=== PATIENT | female | born 1960 | race African-American/Black ===

== ENCOUNTER 2016-12-08 11:29 | Emergency (ER) | payer BC, OTHER ==
[~2016-12-08] VITALS: Ht 165.1 cm; Wt 84.0 kg
[~2016-12-08 11:29] MED LIST: MAXZIDE
[2016-12-08 11:32] VITALS: Ht 165.1 cm; Wt 84.0 kg
[2016-12-08] MEDS ORDERED: SOD CHLORIDE 0.9% 1,000 ML IV STA (14:00)
[2016-12-08] MEDS ORDERED: KETOROLAC 15 MG INJ IV STA (14:00)
[2016-12-08] MEDS ORDERED: ALPRAZOLAM 0.25 MG TAB PO ONE (14:00)
[2016-12-08 14:24] LABS: BASOPHILS % 0.5 % (0.0-2.0); EOSINOPHILS # 0.1 10^3/ul (0.0-0.5); EOSINOPHILS % 1.8 % (0.0-7.0); HEMATOCRIT 39.1 % (37.0-47.0); HEMOGLOBIN 13.4 g/dl (12.0-16.0); LYMPHOCYTES # 1.7 10^3/ul (0.8-2.9); LYMPHOCYTES % 26.3 % (15.0-51.0); MEAN CORPUSCULAR HEMOGLOBIN 28.6 pg (29.0-33.0); MEAN CORPUSCULAR HGB CONC 34.3 g/dl (32.0-37.0); MEAN CORPUSCULAR VOLUME 83.5 fl (82.0-101.0); MEAN PLATELET VOLUME 9.6 fl (7.4-10.4); MONOCYTE # 0.4 10^3/ul (0.3-0.9); MONOCYTES % 5.6 % (0.0-11.0); NEUTROPHILS % 65.5 % (39.0-77.0); PLATELET COUNT 289 10^3/UL (140-415); RED BLOOD COUNT 4.68 10^6/ul (4.20-5.40); WHITE BLOOD COUNT 6.6 10^3/ul (4.8-10.8)
--- NOTE | 2016-12-08 14:28 | RADRPT ---
PROCEDURE: XR Chest. CLINICAL INDICATION: Shortness of breath TECHNIQUE: Single AP view of the chest were obtained COMPARISON: 09/21/2014 FINDINGS: The heart and mediastinum are within normal limits. The pulmonary vasculature are unremarkable. The aorta is unremarkable. There is no lung consolidation, pleural effusion or pneumothorax. There i s no acute osseous abnormality. IMPRESSION: No acute disease. RPTAT: AA .Jemma Tucker MD, Date Time Electronically viewed and signed by .Jemma Tucker MD, on 12/08/2016 14:28 .J/
--- NOTE | 2016-12-08 14:37 | ERD ---
ER Documentation Chief Complaint Date/Time DATE: 12/08/16 TIME: 14:35 Chief Complaint Complains of sob HPI 56-year-old woman presents with 2 weeks of sharp nonexertional nonradiating chest pain as well as exertional dyspnea. She states symptoms occur intermittently throughout the day 2 weeks. She denies exertional chest pain or discomfort and denies symptoms at rest. She states she had similar episode of chest pains a few years ago and underwent cardiac stress testing with her legal compliance officer which was unremarkable. Patient does have a history of well- controlled diabetes mellitus and hypertension and denies other risk factors for coronary artery disease, denies family history of early coronary artery disease or sudden cardiac . She has had no cough, no calf or leg swelling, no fevers or chills, no vomiting or diarrhea. Upon further questioning patient states she has been feeling anxious lately and family members were at the bedside states she has been extremely stressed out and anxious about recent family issues which they did not want to go into detail about. ROS All systems reviewed and are negative except as per history of present illness. Medications Home Meds Active Scripts Alprazolam* (Xanax*) 0.5 Mg Tab, 0.5 MG PO BID for ANXIETY, #15 TAB Prov:DEL MUNOZ MD 12/08/16 Reported Medications Amlodipine Besylate* (Amlodipine Besylate*) 10 Mg Tablet, 10 MG PO DAILY, #30 TAB 12/08/16 Valsartan/Hydrochlorothiazide (Diovan Hct 320-12.5 mg Tab) 1 Each Tablet, 1 EACH PO DAILY, TAB 12/08/16 Metformin Hcl* (Metformin Hcl* ER) 750 Mg Tab.sr.24h, 750 MG PO DAILY, #30 TAB 12/08/16 Discontinued Reported Medications [Maxzide] No Conflict Check 06/06/09 Allergies Allergies: Coded Allergies: ibuprofen (Verified Allergy, Intermediate, Palpitations, 12/08/16) naproxen (Verified Allergy, Intermediate, Palpitation, 12/08/16) PMhx/Soc Hypertension and diabetes mellitus History of Surgery: No Anesthesia Reaction: No Hx Neurological Disorder: No Hx Respiratory Disorders: No Hx Cardiac Disorders: Yes (HTN) Hx Psychiatric Problems: No Hx Miscellaneous Medical Probl: Yes (OVARIAN CYST, DM) Hx Alcohol Use: Yes (Occasionally) Hx Substance Use: No Hx Tobacco Use: No Smoking Status: Never smoker FmHx Family History: No diabetes Physical Exam Vitals Vital Signs Date Time Temp Pulse Resp B/P Pulse Ox O2 Delivery O2 Flow Rate FiO2 12/08/16 15:25 69 18 140/78 96 Room Air 12/08/16 14:15 78 20 158/90 96 Room Air 12/08/16 11:32 98.4 103 20 170/84 98 Physical Exam GENERAL: Well-developed, well-nourished, well-hydrated, anxious and tearful, afebrile HEENT: Moist mucous membranes, pink conjunctiva, no cervical spine tenderness or step-off deformities, no goiter, no jaundice or icterus, extraocular movements intact without pain. No submandibular induration, and no pharyngeal erythema NEURO: Alert and oriented 3, cranial nerves II through XII intact bilaterally, pupils equal round reactive to light, no focal deficits or facial asymmetry, sensation intact distally Strength 5/5 in upper and lower extremities bilaterally CARDIAC: Regular rate and rhythm, no murmurs rubs or gallops LUNGS: Clear bilaterally no wheezing crackles or stridor ABDOMEN: Soft nontender, no guarding, no rigidity, no rebound, no psoas sign no obturator sign. Normoactive bowel sounds SKIN: Warm and dry to touch, no abrasions, contusions, or hematomas, no lacerations, no ecchymosis, no target lesions, and without ulcers EXTREMITIES: No clubbing cyanosis or edema, calves are bilaterally symmetrical, no Homans sign, no popliteal cord sign. Distal pulses equal and bilateral PSYCH: Anxious Result Diagram: 12/08/16 1415 12/08/16 1415 Results 24 hrs Laboratory Tests Test 12/08/16 14:15 White Blood Count 6.610^3/ul Red Blood Count 4.6810^6/ul Hemoglobin 13.4g/dl Hematocrit 39.1% Mean Corpuscular Volume 83.5fl Mean Corpuscular Hemoglobin 28.6pg Mean Corpuscular Hemoglobin Concent 34.3g/dl Red Cell Distribution Width 13.0% Platelet Count 56049^3/UL Mean Platelet Volume 9.6fl Neutrophils % 65.5% Lymphocytes % 26.3% Monocytes % 5.6% Eosinophils % 1.8% Basophils % 0.5% Nucleated Red Blood Cells % 0.0/100WBC Neutrophils # (Manual) 4.310^3/ul Lymphocytes # 1.710^3/ul Monocytes # 0.410^3/ul Eosinophils # 0.110^3/ul Basophils # 0.010^3/ul Nucleated Red Blood Cells # 0.010^3/ul Sodium Level 140mmol/L Potassium Level 4.2mmol/L Chloride Level 101mmol/L Carbon Dioxide Level 29mmol/L Anion Gap 14 Blood Urea Nitrogen 6mg/dl Creatinine 0.65mg/dl Glucose Level 234mg/dl Calcium Level 10.2mg/dl Total Bilirubin 0.4mg/dl Direct Bilirubin 0.00mg/dl Indirect Bilirubin 0.4mg/dl Aspartate Amino Transf (AST/SGOT) 25IU/L Alanine Aminotransferase (ALT/SGPT) 39IU/L Alkaline Phosphatase 111IU/L Troponin I < 0.012ng/ml Total Protein 8.4g/dl Albumin 4.5g/dl Globulin 3.90g/dl Albumin/Globulin Ratio 1.15 Lipase 66U/L Current Medications Medications (Trade) Dose Ordered Sig/Cj Route PRN Reason Start Time Stop Time Status Last Admin Dose Admin Sodium Chloride (NS) 1,000 ml @ 1,000 mls/hr Q1H STAT IV 12/08/16 14:00 12/08/16 14:59 DC 12/08/16 14:24 Ketorolac Tromethamine (Toradol) 15 mg ONCE STAT IV 12/08/16 14:00 12/08/16 14:01 DC Alprazolam (Xanax) 0.5 mg ONCE ONCE PO 12/08/16 14:00 12/08/16 14:01 DC 12/08/16 14:24 Procedures/MDM IV line was established patient was placed on lumber loader rhythm strip revealed a sinus rhythm at about 70 bpm with upright P and T waves. Patient was afebrile. EKG performed, read by me: 72 bpm, normal sinus rhythm, normal axis, no acute ST segment changes, narrow QRS complex, with good R-wave progression in precordial leads. Chest X-ray 1V Interpreted by me: Soft Tissue: No acute abnormalities Bones: No acute abnormalities Mediastinum/Cardiac Silhouette/Lungs: No acute abnormalities CBC and electrolytes are normal, liver function tests are normal, troponin was negative. I administered 1 L normal saline intravenously and alprazolam 0.5 mg p.o. with good response. Differential diagnoses considered, included but not limited to acute coronary syndrome, pulmonary embolism, aortic dissection, abdominal aortic aneurysm, sepsis, stroke, meningitis, encephalitis, pneumonia, appendicitis, cholecystitis , bowel obstruction, pyelonephritis, nephrolithiasis, cystitis, as well as metabolic, hematologic, and electrolyte abnormalities. As well as abscess, cellulitis, fractures, and dislocations. Patient feels much better at this time, and vital signs are normal, symptoms have improved. I did give strict instructions to return to the ED if symptoms continue or worsen, patient will otherwise follow-up with primary care physician. Patient understood instructions and agreed to plan. Disclaimer: Inadvertent spelling and grammatical errors are likely due to EHR/ dictation software use and do not reflect on the overall quality of patient care. Also, please note that the electronic time recorded on this note does not necessarily reflect the actual time of the patient encounter. Departure Diagnosis: Primary Impression: Shortness of breath Additional Impressions: Chest pain Chest pain type: unspecified Qualified Code: R07.9 - Chest pain, unspecified type Anxiety Condition: DEL Martinez MD Dec 08, 2016 14:37
[2016-12-08 14:41] LABS: ALANINE AMINOTRANSFERASE 39 IU/L (13-69); ALBUMIN 4.5 g/dl (3.3-4.9); ALBUMIN/GLOBULIN RATIO 1.15; ALKALINE PHOSPHATASE 111 IU/L (42-121); ANION GAP 14 (8-16); ASPARTATE AMINO TRANSFERASE 25 IU/L (15-46); BILIRUBIN,INDIRECT 0.4 mg/dl (0-1.1); BILIRUBIN,TOTAL 0.4 mg/dl (0.2-1.3); BLOOD UREA NITROGEN 6 mg/dl (7-20); CALCIUM 10.2 mg/dl (8.4-10.2); CARBON DIOXIDE 29 mmol/L (21-31); CHLORIDE 101 mmol/L (97-110); CREATININE 0.65 mg/dl (0.44-1.00); GLUCOSE 234 mg/dl (70-220); POTASSIUM 4.2 mmol/L (3.5-5.1); SODIUM 140 mmol/L (135-144); TOTAL PROTEIN 8.4 g/dl (6.1-8.1)
[2016-12-08 14:55] LABS: TROPONIN-I < 0.012 ng/ml (0.00-0.12)
[2016-12-08] MEDS ORDERED: METF750T2 PO (14:57)
[2016-12-08] MEDS ORDERED: AMLO-147 PO (14:58)
[2016-12-08] MEDS ORDERED: VALS1TAB15 PO (14:58)
[2016-12-08] MEDS ORDERED: ALPR0.5T PO (15:11)
[2016-12-08 15:25] VITALS: BP 140/78; PULSE 69; RESP 18
== END 2016-12-08 15:27 | disposition home or self-care (01) ==
LOC: FTE 11:29 → E/R 15:27
DX: R06.02 Shortness of breath (principal); R07.9 Chest pain, unspecified; F41.9 Anxiety disorder, unspecified; I10 Essential (primary) hypertension; E11.9 Type 2 diabetes mellitus without complications; Z79.84 Long term (current) use of oral hypoglycemic drugs
CPT/HCPCS: 36415; 71010; 80053; 83690; 84484; 85025; 93005; 99285; J1885; J7030